=== PATIENT | female | born 1955 | race Caucasian/White ===

== ENCOUNTER → 2016-09-27 | Outpatient (CLI) | payer OTHER ==
[~2016-09-27] VITALS: Ht 154.9 cm; Wt 65.3 kg
[~2016-09-27] MED LIST: LEVO100T5 PO; LIDOCAINE 2% INJ 100 MG/5 ML SDV (FOR ANES.) As Ordered ONE; LINZ290C PO; NEXI40CA PO; NS 1,000 ML IV ONE; OS-CCHW2 PO; PROPOFOL 500 MG/50 ML VIAL As Ordered ONE
--- NOTE | 2016-09-27 09:34 | ROOR ---
Patient Name: Jennifer Hall Procedure Date: 09/27/2016 9:20 AM Date of : 1955 Age: 61 Room: [facility] Gender: Female Note Status: Finalized Procedure: Upper GI endoscopy Indications: dysphonia, eval for possible gastro-esophageal reflux disease. Providers: Keny RODRIGUEZ MD Referring MD: Ines Hatch NP Requesting Provider: Medicines: Monitored Anesthesia Care Complications: No immediate complications. Procedure: Pre-Anesthesia Assessment: - The heart rate, respiratory rate, oxygen saturations, blood pressure, adequacy of pulmonary ventilation, and response to care were monitored throughout the procedure. The Endoscope was introduced through the mouth, and advanced to the second part of duodenum. The upper GI endoscopy was accomplished without difficulty. The patient tolerated the procedure well. Findings: Very small (insignificant) Hiatal Hernia. The esophagus was normal. This was biopsied with a cold forceps for histology. The stomach was normal. The examined duodenum was normal. Impression: - Very small (insignificant) Hiatal Hernia. - Normal esophagus. Biopsied mid esophagus and GE junction. - Normal stomach. - Normal examined duodenum. Recommendation: - Continue present medications. - Observe patient's clinical course. - Telephone endoscopist for pathology results in 2 weeks. Keny Rodriguez MD Keny RODRIGUEZ MD 09/27/2016 9:33:55 AM This report has been signed electronically. Number of Addenda: 0 Note Initiated On: 09/27/2016 9:20 AM Estimated Blood Loss: Estimated blood loss: none.
[2016-09-27 09:50] VITALS: BP 136/79
== END ==
LOC: M OPP 07:18
PROVIDERS: ATTEND Internal Medicine Gastroenterology
DX: K20.9 Esophagitis, unspecified (principal); K44.9 Diaphragmatic hernia without obstruction or gangrene; E03.9 Hypothyroidism, unspecified; K21.9 Gastro-esophageal reflux disease without esophagitis; D64.9 Anemia, unspecified; Z88.8 Allergy status to other drugs, medicaments and biological substances; Z88.1 Allergy status to other antibiotic agents

== ENCOUNTER → 2016-10-10 | Outpatient (CLI) | payer OTHER ==
[~2016-10-10] MED LIST changes: -LIDOCAINE 2% INJ 100 MG/5 ML SDV (FOR ANES.) As Ordered ONE; -NS 1,000 ML IV ONE; -PROPOFOL 500 MG/50 ML VIAL As Ordered ONE
--- NOTE | 2016-10-10 11:03 | REP ---
MRI STUDY OF THE ABDOMEN WITHOUT AND WITH IV GADOLINIUM: HISTORY: Abnormal findings on previous imaging. Comparison CT study June 29, 2015. Comparison sonography February 23, 2016. Comparison hepatobiliary scan February 23, 2016. The ultrasound showed a 7 mm hyperechoic nodule in the right lobe of the liver likely representing hemangioma. 6-month follow-up ultrasound had been recommended. TECHNIQUE: Coronal and axial T1 and T2-weighted scans are obtained before and after gadolinium. Sequences include TrueFISP, spin echo, turbo spin echo, in- and [id number], and dynamically acquired post gadolinium enhanced 2D gradient echo sequences. MR contrast dose: 13 mL of intravenous ProHance is administered. MRI FINDINGS: No focal liver lesion is seen on pre- or post-gadolinium enhanced images. The 7 mm hyperechoic lesion seen by ultrasound is not resolved on our. It cannot be seen in retrospect on CT. No T2 hyperintense lesion is seen. No abnormal gadolinium enhancement is seen in the liver. The spleen is unremarkable. No adrenal or renal lesion is observed. There is no evidence of upper abdominal ascites. The gallbladder is unremarkable. There is no visible pancreatic lesion. IMPRESSION: Sonographic findings are not confirmed, perhaps beyond the resolution of MR. Repeat sonography of the liver recommended. No liver lesion is seen by MRI scanning. Signed by Krzysztof Morrison MD 10/10/2016 02:09 P
== END ==
LOC: M RAD 07:29
PROVIDERS: ATTEND Physician Assistant Medical
DX: R93.3 Abnormal findings on diagnostic imaging of other parts of digestive tract (principal)
CPT/HCPCS: 74183; A9576

== ENCOUNTER → 2017-01-07 | Outpatient (CLI) | payer OTHER ==
--- NOTE | 2017-01-07 15:56 | REP ---
CAROTID ULTRASOUND: Real-time ultrasound evaluation and duplex Doppler interrogation of the extracranial carotid vasculature is performed. There is mild plaquing and narrowing in both carotid bulbs extending into the internal and external carotid arteries. Luminal narrowing is less than 50%. There is no evidence of hemodynamically significant stenosis of either internal carotid artery. Normal flow velocities are seen. The vertebral arteries demonstrate normal direction of flow. RIGHT LEFT Peak systolic velocity ICA 65.6 cm/s 42.3 cm/s End diastolic velocity ICA 20.1 cm/s 16.7 cm/s Peak systolic velocity CCA 63.8 cm/s 73.6 cm/s Peak systolic velocity ECA 67 cm/s 49.2 cm/s ICA/CCA ratio 1.02 0.57 IMPRESSION: Bilateral luminal narrowing of the internal carotid arteries less than 50%. No evidence of hemodynamically significant stenosis. Signed by Peter Post MD 01/07/2017 03:48 P
== END ==
LOC: M RAD 14:54
PROVIDERS: ATTEND Ophthalmology
DX: G44.1 Vascular headache, not elsewhere classified (principal); I65.23 Occlusion and stenosis of bilateral carotid arteries

== ENCOUNTER → 2017-04-05 | Outpatient (CLI) | payer OTHER ==
[~2017-04-05] MED LIST changes: +PROHANCE 279.3MG/ML 15ML VIAL (A9576) As Ordered ONE
[2017-04-05 15:19] LABS: ALBUMIN 3.8 GM/DL (3.2-5.2); ALBUMIN/GLOBULIN RATIO 1.36 (1.00-1.93); ALKALINE PHOSPHATASE 66 U/L (45-117); ALT/SGPT 19 U/L (12-78); AST/SGOT 5 U/L (7-37); BILIRUBIN,DIRECT 0.1 MG/DL (0.0-0.2); BILIRUBIN,TOTAL 0.5 MG/DL (0.2-1.0); TOTAL PROTEIN 6.6 GM/DL (6.4-8.2)
--- NOTE | 2017-04-09 14:13 | REP ---
MRI LIVER WITH AND WITHOUT CONTRAST: TECHNIQUE: Multiple sequences obtained in the axial and coronal planes prior to and following the intravenous administration of 13 mL of gadolinium. Comparison is made with a prior study of 10/10/2016. Correlation is made with prior ultrasounds. An ultrasound from [facility] 03/12/2017 showed a possible nodule in the liver with a maximum diameter of 2.4 cm. On the MRI no nodule is seen in the liver. There is no abnormal signal on the pre-contrast images. No abnormal enhancement is seen. Correlating the ultrasound images to the MRI, the ultrasound finding may represent periportal fat surrounding a branch of a prominent left portal vein. There is no change since the prior MRI exam which also showed no nodule. The liver and spleen are normal in size. The adrenals, pancreas, and kidneys are unremarkable. There is no adenopathy or free fluid. IMPRESSION: No MR evidence for liver nodule as discussed in detail above. Signed by Peter Post MD 04/09/2017 05:05 P
== END ==
LOC: M RAD 14:16
PROVIDERS: ATTEND Physician Assistant Medical
DX: R93.3 Abnormal findings on diagnostic imaging of other parts of digestive tract (principal); R93.2 Abnormal findings on diagnostic imaging of liver and biliary tract
CPT/HCPCS: 36415; 74183; 80076; 82105; 86705; 86709; 86803; 87340; A9576

== ENCOUNTER → 2017-05-30 | Outpatient (CLI) | payer OTHER | LOC: M RAD 08:56 | DX: R93.3 Abnormal findings on diagnostic imaging of other parts of digestive tract (principal) | CPT/HCPCS: 76705 ==

== ENCOUNTER → 2017-10-01 | Outpatient (CLI) | payer OTHER ==
[~2017-10-01] MED LIST changes: +E-Z-GAS II EFFERVESCENT PACKET (SODIUM BICARB./CITRIC ACID/SIMETHICONE) As Ordered; +E-Z-HD 98% w/w 340GM SUSP BTL As Ordered; +E-Z-PAQUE 96% w/w SUSP 176GM BTL As Ordered; -LEVO100T5 PO; -LINZ290C PO; -NEXI40CA PO; -OS-CCHW2 PO; -PROHANCE 279.3MG/ML 15ML VIAL (A9576) As Ordered ONE
== END ==
LOC: M RAD 11:01
DX: R10.84 Generalized abdominal pain (principal); R12 Heartburn

== ENCOUNTER 2018-04-09 14:08 | Emergency (ER) | payer OTHER ==
[2018-04-09] MEDS: SOD POLYSTYRENE SULFONATE SUSP 15 GM/60 ML UD PO (15:34)
[2018-04-09] MEDS: MAGNESIUM CITRATE 300 ML BTL PO (15:34)
== END 2018-04-09 15:35 | disposition home or self-care (01) ==
LOC: M ED 14:08
DX: K59.00 Constipation, unspecified (principal); E03.9 Hypothyroidism, unspecified; Z79.899 Other long term (current) drug therapy; Z88.8 Allergy status to other drugs, medicaments and biological substances
CPT/HCPCS: 74018

== ENCOUNTER 2018-04-10 00:42 | Inpatient (IN) | payer OTHER ==
[2018-04-10] MEDS: MORPHINE 4 MG/ML 1ML VIAL/SYRINGE (J2270) IV ×3 (01:26→07:34)
[2018-04-10 01:28] LABS: BASO # 0.1 10^3/uL (0.0-0.2); BASO % 0.5 % (0.0-1.0); EOS # 0.1 10^3/uL (0.0-0.50); EOS % 0.5 % (0.0-3.0); HEMATOCRIT 35.6 % (36.0-47.0); HEMOGLOBIN 11.1 g/dl (12.0-15.5); IMMATURE GRANULOCYTE % 0.2 % (0-3.0); LYMPH # 2.3 10^3/uL (1.5-4.5); LYMPH % 24.8 % (24.0-44.0); MEAN CORPUSCULAR HGB CONC 31.2 g/dl (32.0-36.5); MEAN CORPUSCULAR VOLUME 64.1 fl (80.0-96.0); MONO # 0.9 10^3/uL (0.0-0.8); MONO % 9.1 % (0.0-5.0); NEUTROPHILS # 6.1 10^3/uL (1.8-7.7); NEUTROPHILS % 64.9 % (36.0-66.0); PLATELET COUNT, AUTOMATED 335 10^3/uL (150-450); RED BLOOD COUNT 5.55 10^6/uL (4.00-5.40); RED CELL DISTRIBUTION WIDTH 15.5 % (11.5-14.5); WHITE BLOOD COUNT 9.4 10^3/uL (4.0-10.0)
[2018-04-10 01:47] LABS: KETONE, URINE AUTO RFX 1+ mg/dL (NEGATIVE); LEUKOCYTE ESTERASE UR AUTO RFX NEGATIVE (NEGATIVE); NITRITE, URINE AUTO RFX NEGATIVE (NEGATIVE); RBC, URINE AUTO RFX 2 /HPF (0-3); SPECIFIC GRAVITY UR AUTO RFX 1.016 (1.002-1.035); SQUAM EPITHELIAL CELL UR AURFX 0 /HPF (0-6); WBC, URINE AUTO RFX 1 /HPF (0-3)
[2018-04-10 01:58] LABS: ALBUMIN 3.8 GM/DL (3.2-5.2); ALBUMIN/GLOBULIN RATIO 1.19 (1.00-1.93); ALKALINE PHOSPHATASE 74 U/L (45-117); ALT/SGPT 25 U/L (12-78); ANION GAP 10 MEQ/L (8-16); AST/SGOT 14 U/L (7-37); BILIRUBIN,DIRECT 0.1 MG/DL (0.0-0.2); BILIRUBIN,TOTAL 0.5 MG/DL (0.2-1.0); BLOOD UREA NITROGEN 9 MG/DL (7-18); CALCIUM LEVEL 8.6 MG/DL (8.8-10.2); CARBON DIOXIDE LEVEL 27 MEQ/L (21-32); CHLORIDE LEVEL 104 MEQ/L (98-107); CREATININE FOR GFR 0.91 MG/DL (0.55-1.30); GLOMERULAR FILTRATION RATE > 60.0 (>45); GLUCOSE, FASTING 90 MG/DL (70-100); LIPASE 191 U/L (73-393); POTASSIUM SERUM 3.4 MEQ/L (3.5-5.1); SODIUM LEVEL 141 MEQ/L (136-145)
[2018-04-10] MEDS ORDERED: ISOVUE-370 76% 100ML VIAL (Q9967) As Ordered (02:21)
[2018-04-10] MEDS: POTASSIUM CHLORIDE 10 MEQ SR TABLET PO (03:23)
[2018-04-10] MEDS: NS 1,000 ML IV (04:58)
[2018-04-10] MEDS ORDERED: PROMETHAZINE INJ 25 MG/ML VIAL (J2550) IV (07:00)
[2018-04-10] MEDS ORDERED: MORPHINE 4 MG/ML 1ML VIAL/SYRINGE (J2270) IV ×2 (07:00→13:00)
[2018-04-10] MEDS: ONDANSETRON 4MG/2ML VIAL (J2405) IV ×2 (07:12→13:36)
[2018-04-10] MEDS: KCL 40MEQ in NS 1000ML 1,000 ML IV ×3 (07:34→21:16)
[2018-04-10] MEDS: LEVOTHYROXINE 100MCG TABLET (0.1MG) PO ×2 (07:48→20:04)
[2018-04-10] MEDS: PANTOPRAZOLE 40MG INJ (PROTONIX) (C9113) IV (12:06)
[2018-04-10] MEDS: LOSARTAN 25 MG TAB PO (12:07)
[2018-04-10] MEDS: SIMETHICONE 80 MG CHEW TAB PO ×2 (12:07→12:52)
[2018-04-10] MEDS: METOCLOPRAMIDE INJ 10MG/2ML VIAL (J2765) IV (17:37)
[2018-04-10] MEDS: ACETAMINOPHEN TAB 650MG DOSE (2X325MG) PO (17:43)
[2018-04-10] MEDS: LACTULOSE 20 GM/30 ML SYRUP UD PO (20:03)
[2018-04-11] MEDS: PANTOPRAZOLE 40MG INJ (PROTONIX) (C9113) IV (08:22)
[2018-04-11] MEDS: LACTULOSE 20 GM/30 ML SYRUP UD PO ×2 (08:22→21:57)
[2018-04-11] MEDS: LOSARTAN 25 MG TAB PO (08:23)
[2018-04-11] MEDS: ACETAMINOPHEN TAB 650MG DOSE (2X325MG) PO ×2 (10:02→19:29)
[2018-04-11] MEDS: MIRALAX *UNIT DOSE* 17GM PACKET PO ×4 (12:54→21:57)
[2018-04-11] MEDS: KETOROLAC 30 MG/ML VIAL (J1885) IV (12:55)
[2018-04-11] MEDS: KCL 40MEQ in NS 1000ML 1,000 ML IV (12:56)
[2018-04-11] MEDS: LEVOTHYROXINE 100MCG TABLET (0.1MG) PO (21:57)
[2018-04-12] MEDS: KCL 40MEQ in NS 1000ML 1,000 ML IV ×3 (02:00→17:36)
[2018-04-12] MEDS: ACETAMINOPHEN TAB 650MG DOSE (2X325MG) PO ×2 (05:53→10:24)
[2018-04-12] MEDS: PANTOPRAZOLE 40MG INJ (PROTONIX) (C9113) IV (09:50)
[2018-04-12] MEDS: LACTULOSE 20 GM/30 ML SYRUP UD PO ×2 (09:51→21:46)
[2018-04-12] MEDS: LOSARTAN 25 MG TAB PO (09:52)
[2018-04-12] MEDS: METOCLOPRAMIDE INJ 10MG/2ML VIAL (J2765) IV (10:23)
[2018-04-12] MEDS: POTASSIUM CHLORIDE 10 MEQ SR TABLET PO ×2 (17:35→21:47)
[2018-04-12] MEDS: GOLYTELY SOLN 4000 ML BTL PO (17:36)
[2018-04-12] MEDS: BISACODYL 5 MG TAB PO ×2 (17:36→21:46)
[2018-04-12] MEDS: ONDANSETRON 4MG/2ML VIAL (J2405) IV (19:05)
[2018-04-12] MEDS: LEVOTHYROXINE 100MCG TABLET (0.1MG) PO (21:46)
[2018-04-13] MEDS: KCL 40MEQ in NS 1000ML 1,000 ML IV ×2 (04:31→17:14)
[2018-04-13 07:38] LABS: BASO # 0.1 10^3/uL (0.0-0.2); BASO % 0.9 % (0.0-1.0); EOS # 0.1 10^3/uL (0.0-0.50); EOS % 1.9 % (0.0-3.0); HEMATOCRIT 32.1 % (36.0-47.0); HEMOGLOBIN 9.9 g/dl (12.0-15.5); IMMATURE GRANULOCYTE % 0.4 % (0-3.0); LYMPH % 28.8 % (24.0-44.0); MEAN CORPUSCULAR HEMOGLOBIN 20.2 pg (27.0-33.0); MEAN CORPUSCULAR HGB CONC 30.8 g/dl (32.0-36.5); MEAN CORPUSCULAR VOLUME 65.4 fl (80.0-96.0); MONO # 0.7 10^3/uL (0.0-0.8); MONO % 10.1 % (0.0-5.0); NEUTROPHILS % 57.9 % (36.0-66.0); PLATELET COUNT, AUTOMATED 306 10^3/uL (150-450); RED BLOOD COUNT 4.91 10^6/uL (4.00-5.40); RED CELL DISTRIBUTION WIDTH 15.9 % (11.5-14.5); WHITE BLOOD COUNT 6.9 10^3/uL (4.0-10.0)
[2018-04-13 08:08] LABS: ALBUMIN 3.4 GM/DL (3.2-5.2); ALBUMIN/GLOBULIN RATIO 1.26 (1.00-1.93); ALKALINE PHOSPHATASE 61 U/L (45-117); ALT/SGPT 20 U/L (12-78); ANION GAP 7 MEQ/L (8-16); AST/SGOT 7 U/L (7-37); BILIRUBIN,TOTAL 0.5 MG/DL (0.2-1.0); BLOOD UREA NITROGEN 4 MG/DL (7-18); CALCIUM LEVEL 8.4 MG/DL (8.8-10.2); CARBON DIOXIDE LEVEL 27 MEQ/L (21-32); CHLORIDE LEVEL 109 MEQ/L (98-107); CREATININE FOR GFR 0.84 MG/DL (0.55-1.30); GLOMERULAR FILTRATION RATE > 60.0 (>45); GLUCOSE, FASTING 90 MG/DL (70-100); POTASSIUM SERUM 3.9 MEQ/L (3.5-5.1); SODIUM LEVEL 143 MEQ/L (136-145); TOTAL PROTEIN 6.1 GM/DL (6.4-8.2)
[2018-04-13] MEDS: PANTOPRAZOLE 40MG INJ (PROTONIX) (C9113) IV (09:43)
[2018-04-13] MEDS: LACTULOSE 20 GM/30 ML SYRUP UD PO ×2 (09:45→20:58)
[2018-04-13] MEDS: LOSARTAN 25 MG TAB PO (09:45)
[2018-04-13] MEDS: MIRALAX *UNIT DOSE* 17GM PACKET PO ×3 (16:27→18:59)
[2018-04-13] MEDS: ACETAMINOPHEN TAB 650MG DOSE (2X325MG) PO (16:29)
[2018-04-13] MEDS: BISACODYL 5 MG TAB PO ×3 (16:29→20:59)
[2018-04-13] MEDS: LEVOTHYROXINE 100MCG TABLET (0.1MG) PO (20:59)
[2018-04-14 07:26] LABS: ANION GAP 6 MEQ/L (8-16); BLOOD UREA NITROGEN 3 MG/DL (7-18); CALCIUM LEVEL 8.4 MG/DL (8.8-10.2); CARBON DIOXIDE LEVEL 28 MEQ/L (21-32); CHLORIDE LEVEL 110 MEQ/L (98-107); CREATININE FOR GFR 0.79 MG/DL (0.55-1.30); GLOMERULAR FILTRATION RATE > 60.0 (>45); GLUCOSE, FASTING 90 MG/DL (70-100); POTASSIUM SERUM 4.1 MEQ/L (3.5-5.1); SODIUM LEVEL 144 MEQ/L (136-145)
[2018-04-14] MEDS: PANTOPRAZOLE 40MG INJ (PROTONIX) (C9113) IV (07:53)
[2018-04-14] MEDS: LOSARTAN 25 MG TAB PO (07:54)
[2018-04-14] MEDS: LACTULOSE 20 GM/30 ML SYRUP UD PO ×2 (07:54→21:47)
[2018-04-14] MEDS: DOCUSATE SODIUM 100 MG CAP PO ×2 (10:30→21:46)
[2018-04-14] MEDS: SENNA 8.6 MG TAB (SENOKOT) PO ×2 (10:30→21:46)
[2018-04-14] MEDS: KCL 40MEQ in NS 1000ML 1,000 ML IV ×2 (11:09→21:47)
[2018-04-14] MEDS: GOLYTELY SOLN 4000 ML BTL PO (12:07)
[2018-04-14] MEDS: LINZESS 290 MCG PO (17:30)
[2018-04-14] MEDS: LEVOTHYROXINE 100MCG TABLET (0.1MG) PO (21:47)
[2018-04-15] MEDS ORDERED: LIQUID POLIBAR PLUS 105% w/v 1900ML BTL As Ordered (08:34)
[2018-04-15] MEDS: PANTOPRAZOLE 40MG INJ (PROTONIX) (C9113) IV (10:18)
[2018-04-15] MEDS: DOCUSATE SODIUM 100 MG CAP PO ×2 (10:18→21:51)
[2018-04-15] MEDS: SENNA 8.6 MG TAB (SENOKOT) PO ×2 (10:18→21:50)
[2018-04-15] MEDS: LINZESS 290 MCG PO ×2 (10:19→17:42)
[2018-04-15] MEDS: LACTULOSE 20 GM/30 ML SYRUP UD PO ×2 (10:19→21:50)
[2018-04-15] MEDS: LOSARTAN 25 MG TAB PO (10:19)
[2018-04-15] MEDS: KCL 40MEQ in NS 1000ML 1,000 ML IV ×2 (10:37→23:48)
[2018-04-15] MEDS: LEVOTHYROXINE 100MCG TABLET (0.1MG) PO (21:51)
[2018-04-16] MEDS: LINZESS 290 MCG PO ×2 (07:52→17:47)
[2018-04-16] MEDS: LACTULOSE 20 GM/30 ML SYRUP UD PO ×2 (09:31→22:04)
[2018-04-16] MEDS: PANTOPRAZOLE 40MG INJ (PROTONIX) (C9113) IV (09:31)
[2018-04-16] MEDS: SENNA 8.6 MG TAB (SENOKOT) PO ×2 (09:31→22:04)
[2018-04-16] MEDS: DOCUSATE SODIUM 100 MG CAP PO ×2 (09:32→22:05)
[2018-04-16] MEDS: LOSARTAN 25 MG TAB PO (09:32)
[2018-04-16] MEDS: LEVOTHYROXINE 100MCG TABLET (0.1MG) PO (22:05)
[2018-04-17] MEDS: LINZESS 290 MCG PO ×2 (07:52→17:25)
[2018-04-17] MEDS: LACTULOSE 20 GM/30 ML SYRUP UD PO (09:50)
[2018-04-17] MEDS: SENNA 8.6 MG TAB (SENOKOT) PO ×2 (09:50→21:37)
[2018-04-17] MEDS: DOCUSATE SODIUM 100 MG CAP PO ×2 (09:50→21:36)
[2018-04-17] MEDS: PANTOPRAZOLE 40MG INJ (PROTONIX) (C9113) IV (09:50)
[2018-04-17] MEDS: LOSARTAN 25 MG TAB PO (09:50)
[2018-04-17] MEDS: MIRALAX *UNIT DOSE* 17GM PACKET PO ×3 (13:25→21:36)
[2018-04-17] MEDS: LEVOTHYROXINE 100MCG TABLET (0.1MG) PO (21:37)
[2018-04-18] MEDS: LINZESS 290 MCG PO (07:49)
[2018-04-18] MEDS: ACETAMINOPHEN TAB 650MG DOSE (2X325MG) PO (07:51)
[2018-04-18] MEDS: SENNA 8.6 MG TAB (SENOKOT) PO ×2 (09:18→19:57)
[2018-04-18] MEDS: PANTOPRAZOLE 40MG INJ (PROTONIX) (C9113) IV (09:18)
[2018-04-18] MEDS: DOCUSATE SODIUM 100 MG CAP PO ×2 (09:18→19:57)
[2018-04-18] MEDS: MIRALAX *UNIT DOSE* 17GM PACKET PO (09:18)
[2018-04-18] MEDS: LOSARTAN 25 MG TAB PO (09:19)
[2018-04-18] MEDS: GOLYTELY SOLN 4000 ML BTL PO (12:15)
[2018-04-18] MEDS: SLF 3 ML SYR IV ×2 (18:27→19:58)
[2018-04-18] MEDS: MOM 30ML SUSPENSION UDC PO (19:57)
[2018-04-18] MEDS: LEVOTHYROXINE 100MCG TABLET (0.1MG) PO (19:58)
[2018-04-19] MEDS: SLF 3 ML SYR IV ×3 (06:27→20:22)
[2018-04-19] MEDS: MOM 30ML SUSPENSION UDC PO ×2 (09:39→20:22)
[2018-04-19] MEDS: PANTOPRAZOLE 40MG INJ (PROTONIX) (C9113) IV (09:39)
[2018-04-19] MEDS: LOSARTAN 25 MG TAB PO (09:40)
[2018-04-19] MEDS: SENNA 8.6 MG TAB (SENOKOT) PO ×2 (09:40→20:21)
[2018-04-19] MEDS: DOCUSATE SODIUM 100 MG CAP PO ×2 (09:40→20:20)
[2018-04-19] MEDS: GOLYTELY SOLN 4000 ML BTL PO (11:29)
[2018-04-19] MEDS: LEVOTHYROXINE 100MCG TABLET (0.1MG) PO (20:21)
[2018-04-20] MEDS: SLF 3 ML SYR IV ×3 (06:51→22:04)
[2018-04-20 07:09] LABS: ANION GAP 4 MEQ/L (8-16); BLOOD UREA NITROGEN 6 MG/DL (7-18); CALCIUM LEVEL 8.8 MG/DL (8.8-10.2); CARBON DIOXIDE LEVEL 31 MEQ/L (21-32); CHLORIDE LEVEL 107 MEQ/L (98-107); GLOMERULAR FILTRATION RATE > 60.0 (>45); GLUCOSE, FASTING 95 MG/DL (70-100); POTASSIUM SERUM 3.7 MEQ/L (3.5-5.1); SODIUM LEVEL 142 MEQ/L (136-145)
[2018-04-20 07:16] LABS: HEMATOCRIT 33.6 % (36.0-47.0); HEMOGLOBIN 10.4 g/dl (12.0-15.5); MEAN CORPUSCULAR VOLUME 64.5 fl (80.0-96.0); PLATELET COUNT, AUTOMATED 331 10^3/uL (150-450); RED BLOOD COUNT 5.21 10^6/uL (4.00-5.40); RED CELL DISTRIBUTION WIDTH 15.5 % (11.5-14.5); WHITE BLOOD COUNT 6.8 10^3/uL (4.0-10.0)
[2018-04-20] MEDS: PANTOPRAZOLE 40MG INJ (PROTONIX) (C9113) IV (09:12)
[2018-04-20] MEDS: DOCUSATE SODIUM 100 MG CAP PO ×2 (09:13→22:05)
[2018-04-20] MEDS: LOSARTAN 25 MG TAB PO (09:13)
[2018-04-20] MEDS: SENNA 8.6 MG TAB (SENOKOT) PO ×2 (09:13→22:06)
[2018-04-20] MEDS: MOM 30ML SUSPENSION UDC PO ×2 (09:13→22:05)
[2018-04-20] MEDS: GOLYTELY SOLN 4000 ML BTL PO (10:47)
[2018-04-20] MEDS: LEVOTHYROXINE 100MCG TABLET (0.1MG) PO (22:05)
[2018-04-21] MEDS: SLF 3 ML SYR IV (06:00)
[2018-04-21 06:34] LABS: HEMOGLOBIN 10.4 g/dl (12.0-15.5); MEAN CORPUSCULAR HEMOGLOBIN 20.4 pg (27.0-33.0); MEAN CORPUSCULAR HGB CONC 31.5 g/dl (32.0-36.5); MEAN CORPUSCULAR VOLUME 64.8 fl (80.0-96.0); PLATELET COUNT, AUTOMATED 304 10^3/uL (150-450); RED BLOOD COUNT 5.09 10^6/uL (4.00-5.40); RED CELL DISTRIBUTION WIDTH 15.3 % (11.5-14.5); WHITE BLOOD COUNT 6.2 10^3/uL (4.0-10.0)
[2018-04-21 06:54] LABS: ANION GAP 4 MEQ/L (8-16); BLOOD UREA NITROGEN 7 MG/DL (7-18); CALCIUM LEVEL 8.6 MG/DL (8.8-10.2); CARBON DIOXIDE LEVEL 31 MEQ/L (21-32); CHLORIDE LEVEL 109 MEQ/L (98-107); CREATININE FOR GFR 0.78 MG/DL (0.55-1.30); GLOMERULAR FILTRATION RATE > 60.0 (>45); GLUCOSE, FASTING 92 MG/DL (70-100); POTASSIUM SERUM 3.5 MEQ/L (3.5-5.1); SODIUM LEVEL 144 MEQ/L (136-145)
[2018-04-21] MEDS: PANTOPRAZOLE 40MG INJ (PROTONIX) (C9113) IV (08:18)
[2018-04-21] MEDS: LOSARTAN 25 MG TAB PO (08:19)
[2018-04-21] MEDS: GOLYTELY SOLN 4000 ML BTL PO (09:00)
[2018-04-21] MEDS: SENNA 8.6 MG TAB (SENOKOT) PO (09:00)
[2018-04-21] MEDS: DOCUSATE SODIUM 100 MG CAP PO (09:00)
[2018-04-21] MEDS: MOM 30ML SUSPENSION UDC PO (09:00)
[2018-04-21] MEDS ORDERED: ROCURONIUM BROMIDE 50 MG/5 ML VIAL As Ordered (10:02)
[2018-04-21] MEDS ORDERED: dexameTHASONE 4 MG/ML 1ML VIAL (J1100) As Ordered ×2 (10:02→13:07)
[2018-04-21] MEDS ORDERED: ONDANSETRON 4MG/2ML VIAL (J2405) As Ordered ×2 (10:02→14:11)
[2018-04-21] MEDS ORDERED: PROPOFOL 200 MG/20 ML VIAL As Ordered (10:02)
[2018-04-21] MEDS ORDERED: LIDOCAINE 2% INJ 100 MG/5 ML SDV (FOR ANES.) As Ordered (10:02)
[2018-04-21] MEDS ORDERED: fentaNYL 250 MCG/5 ML INJECTION (J3010) As Ordered (10:03)
[2018-04-21] MEDS ORDERED: MIDAZOLAM INJ 2 MG/2 ML VIAL (J2250) As Ordered (10:03)
[2018-04-21] MEDS ORDERED: ERTAPENEM 1 GM INJ (INVanz) (J1335) As Ordered (12:03)
[2018-04-21] MEDS: ERTAPENEM SODIUM 1 GM in NS 50 ML IV (12:32)
[2018-04-21] MEDS ORDERED: SUGAMMADEX SODIUM 500 MG/5 ML VIAL (BRIDION) As Ordered (13:10)
[2018-04-21] MEDS: BUPIVACAINE HCL 0.25% 30 ML VIAL As Ordered (13:33)
[2018-04-21] MEDS: BUPIVACAINE LIPOSOME/PF 1.3% 20ML VIAL (13.3MG/ML)(EXPAREL)(C9290 PER1MG) As Ordered (13:33)
[2018-04-21] MEDS ORDERED: MORPHINE 1MG/ML IN 0.9% NACL 100ML IV BAG As Ordered (13:37)
[2018-04-21] MEDS ORDERED: NS 1,000 ML IV (13:39)
[2018-04-21] MEDS ORDERED: IPRATROPIUM 0.5MG/ALBUTEROL 2.5MG INH SOL UD 3ML (DUONEB)(J7620) NEB (13:45)
[2018-04-21] MEDS ORDERED: METOCLOPRAMIDE INJ 10MG/2ML VIAL (J2765) IV (13:45)
[2018-04-21] MEDS ORDERED: ONDANSETRON 4MG/2ML VIAL (J2405) IV (13:45)
[2018-04-21] MEDS ORDERED: PROMETHAZINE INJ 25 MG/ML VIAL (J2550) IV (13:45)
[2018-04-21] MEDS ORDERED: diphenhydrAMINE INJ 50MG/ML VIAL (J1200) IV (13:45)
[2018-04-21] MEDS ORDERED: EPIDURAL/PCA KEYS XX (13:45)
[2018-04-21] MEDS ORDERED: NALOXONE INJ 0.4 MG/1 ML VIAL (J2310) IV (13:45)
[2018-04-21] MEDS: GLUCAGON FOR INJ 1 MG VIAL (J1610) As Ordered (13:53)
[2018-04-21] MEDS: LR 1,000 ML IV (14:00)
[2018-04-21] MEDS ORDERED: fentaNYL 100 MCG/2 ML INJECTION (J3010) IV (14:00)
[2018-04-21] MEDS ORDERED: PERCOCET 5MG/325MG TAB PO (14:00)
[2018-04-21] MEDS ORDERED: MEPERIDINE INJ 25 MG/ML VIAL (J2175) IV (14:00)
[2018-04-21] MEDS ORDERED: METOCLOPRAMIDE INJ 10MG/2ML VIAL (J2765) As Ordered (14:11)
[2018-04-21] MEDS: METOCLOPRAMIDE INJ 10MG/2ML VIAL (J2765) IV (14:12)
[2018-04-21] MEDS: ONDANSETRON 4MG/2ML VIAL (J2405) IV (14:12)
[2018-04-21] MEDS ORDERED: KETOROLAC 30 MG/ML VIAL (J1885) As Ordered (14:22)
[2018-04-21] MEDS: KETOROLAC 30 MG/ML VIAL (J1885) IV ×2 (14:25→20:21)
[2018-04-21] MEDS: MORPHINE 1MG/ML IN 0.9% NACL 100ML IV BAG IV (14:38)
[2018-04-21] MEDS: D5W/LR 1,000 ML IV ×2 (15:30→22:23)
[2018-04-21] MEDS: ALVIMOPAN 12 MG CAPSULE (ENTEREG) PO (20:21)
[2018-04-22] MEDS: KETOROLAC 30 MG/ML VIAL (J1885) IV ×4 (03:39→21:27)
[2018-04-22] MEDS: D5W/LR 1,000 ML IV ×3 (06:00→21:26)
[2018-04-22 07:06] LABS: HEMATOCRIT 29.9 % (36.0-47.0); HEMOGLOBIN 9.4 g/dl (12.0-15.5); MEAN CORPUSCULAR HEMOGLOBIN 20.3 pg (27.0-33.0); MEAN CORPUSCULAR HGB CONC 31.4 g/dl (32.0-36.5); MEAN CORPUSCULAR VOLUME 64.4 fl (80.0-96.0); PLATELET COUNT, AUTOMATED 255 10^3/uL (150-450); RED BLOOD COUNT 4.64 10^6/uL (4.00-5.40); RED CELL DISTRIBUTION WIDTH 15.1 % (11.5-14.5); WHITE BLOOD COUNT 13.3 10^3/uL (4.0-10.0)
[2018-04-22 07:35] LABS: ANION GAP 5 MEQ/L (8-16); BLOOD UREA NITROGEN 7 MG/DL (7-18); CALCIUM LEVEL 8.3 MG/DL (8.8-10.2); CARBON DIOXIDE LEVEL 30 MEQ/L (21-32); CHLORIDE LEVEL 106 MEQ/L (98-107); CREATININE FOR GFR 0.67 MG/DL (0.55-1.30); GLOMERULAR FILTRATION RATE > 60.0 (>45); GLUCOSE, FASTING 132 MG/DL (70-100); POTASSIUM SERUM 3.7 MEQ/L (3.5-5.1); SODIUM LEVEL 141 MEQ/L (136-145)
[2018-04-22] MEDS: PANTOPRAZOLE 40MG INJ (PROTONIX) (C9113) IV (09:27)
[2018-04-22] MEDS: ALVIMOPAN 12 MG CAPSULE (ENTEREG) PO ×2 (09:27→21:27)
[2018-04-22] MEDS: MORPHINE 4 MG/ML 1ML VIAL/SYRINGE (J2270) IV ×2 (13:47→17:12)
[2018-04-22] MEDS: ERTAPENEM SODIUM 1 GM in NS MINI-BAG PLUS 50 ML IV (13:48)
[2018-04-23] MEDS: KETOROLAC 30 MG/ML VIAL (J1885) IV ×4 (04:00→22:11)
[2018-04-23 07:18] LABS: HEMATOCRIT 30.2 % (36.0-47.0); HEMOGLOBIN 9.5 g/dl (12.0-15.5); MEAN CORPUSCULAR HEMOGLOBIN 20.4 pg (27.0-33.0); MEAN CORPUSCULAR HGB CONC 31.5 g/dl (32.0-36.5); MEAN CORPUSCULAR VOLUME 64.8 fl (80.0-96.0); PLATELET COUNT, AUTOMATED 250 10^3/uL (150-450); RED BLOOD COUNT 4.66 10^6/uL (4.00-5.40); RED CELL DISTRIBUTION WIDTH 15.4 % (11.5-14.5); WHITE BLOOD COUNT 8.7 10^3/uL (4.0-10.0)
[2018-04-23 07:36] LABS: ANION GAP 7 MEQ/L (8-16); BLOOD UREA NITROGEN 6 MG/DL (7-18); CARBON DIOXIDE LEVEL 30 MEQ/L (21-32); CHLORIDE LEVEL 108 MEQ/L (98-107); CREATININE FOR GFR 0.61 MG/DL (0.55-1.30); GLOMERULAR FILTRATION RATE > 60.0 (>45); GLUCOSE, FASTING 97 MG/DL (70-100); POTASSIUM SERUM 3.5 MEQ/L (3.5-5.1); SODIUM LEVEL 145 MEQ/L (136-145)
[2018-04-23] MEDS: PANTOPRAZOLE 40MG INJ (PROTONIX) (C9113) IV (08:55)
[2018-04-23] MEDS: ALVIMOPAN 12 MG CAPSULE (ENTEREG) PO ×2 (08:56→22:11)
[2018-04-23] MEDS: SENNA 8.6 MG TAB (SENOKOT) PO ×2 (11:39→22:12)
[2018-04-23] MEDS: DOCUSATE SODIUM 100 MG CAP PO ×2 (11:39→22:11)
[2018-04-24] MEDS: KETOROLAC 30 MG/ML VIAL (J1885) IV ×4 (04:01→21:54)
[2018-04-24 06:59] LABS: HEMATOCRIT 31.9 % (36.0-47.0); MEAN CORPUSCULAR HEMOGLOBIN 20.1 pg (27.0-33.0); MEAN CORPUSCULAR HGB CONC 31.3 g/dl (32.0-36.5); MEAN CORPUSCULAR VOLUME 64.2 fl (80.0-96.0); PLATELET COUNT, AUTOMATED 266 10^3/uL (150-450); RED BLOOD COUNT 4.97 10^6/uL (4.00-5.40); RED CELL DISTRIBUTION WIDTH 15.1 % (11.5-14.5); WHITE BLOOD COUNT 6.8 10^3/uL (4.0-10.0)
[2018-04-24 07:23] LABS: ANION GAP 8 MEQ/L (8-16); BLOOD UREA NITROGEN 7 MG/DL (7-18); CALCIUM LEVEL 8.9 MG/DL (8.8-10.2); CARBON DIOXIDE LEVEL 29 MEQ/L (21-32); CHLORIDE LEVEL 107 MEQ/L (98-107); CREATININE FOR GFR 0.61 MG/DL (0.55-1.30); GLOMERULAR FILTRATION RATE > 60.0 (>45); GLUCOSE, FASTING 92 MG/DL (70-100); POTASSIUM SERUM 3.4 MEQ/L (3.5-5.1); SODIUM LEVEL 144 MEQ/L (136-145)
[2018-04-24] MEDS: SENNA 8.6 MG TAB (SENOKOT) PO ×2 (08:34→21:52)
[2018-04-24] MEDS: PANTOPRAZOLE 40MG INJ (PROTONIX) (C9113) IV (08:34)
[2018-04-24] MEDS: DOCUSATE SODIUM 100 MG CAP PO ×2 (08:35→21:52)
[2018-04-24] MEDS: ALVIMOPAN 12 MG CAPSULE (ENTEREG) PO ×2 (08:35→21:52)
[2018-04-25] MEDS: KETOROLAC 30 MG/ML VIAL (J1885) IV ×4 (03:36→21:39)
[2018-04-25 07:11] LABS: HEMATOCRIT 31.2 % (36.0-47.0); MEAN CORPUSCULAR HEMOGLOBIN 20.1 pg (27.0-33.0); MEAN CORPUSCULAR HGB CONC 32.1 g/dl (32.0-36.5); MEAN CORPUSCULAR VOLUME 62.8 fl (80.0-96.0); PLATELET COUNT, AUTOMATED 293 10^3/uL (150-450); RED BLOOD COUNT 4.97 10^6/uL (4.00-5.40); WHITE BLOOD COUNT 5.8 10^3/uL (4.0-10.0)
[2018-04-25 07:39] LABS: ANION GAP 7 MEQ/L (8-16); BLOOD UREA NITROGEN 7 MG/DL (7-18); CALCIUM LEVEL 8.3 MG/DL (8.8-10.2); CARBON DIOXIDE LEVEL 30 MEQ/L (21-32); CHLORIDE LEVEL 106 MEQ/L (98-107); CREATININE FOR GFR 0.71 MG/DL (0.55-1.30); GLOMERULAR FILTRATION RATE > 60.0 (>45); GLUCOSE, FASTING 85 MG/DL (70-100); POTASSIUM SERUM 3.3 MEQ/L (3.5-5.1); SODIUM LEVEL 143 MEQ/L (136-145)
[2018-04-25] MEDS: ALVIMOPAN 12 MG CAPSULE (ENTEREG) PO ×2 (08:37→21:40)
[2018-04-25] MEDS: PANTOPRAZOLE 40MG INJ (PROTONIX) (C9113) IV (08:37)
[2018-04-25] MEDS: SENNA 8.6 MG TAB (SENOKOT) PO ×2 (08:37→21:40)
[2018-04-25] MEDS: DOCUSATE SODIUM 100 MG CAP PO ×2 (08:37→21:40)
[2018-04-26] MEDS: KETOROLAC 30 MG/ML VIAL (J1885) IV ×2 (03:29→10:14)
[2018-04-26 06:57] LABS: HEMATOCRIT 30.7 % (36.0-47.0); HEMOGLOBIN 9.9 g/dl (12.0-15.5); MEAN CORPUSCULAR HEMOGLOBIN 20.4 pg (27.0-33.0); MEAN CORPUSCULAR HGB CONC 32.2 g/dl (32.0-36.5); MEAN CORPUSCULAR VOLUME 63.2 fl (80.0-96.0); PLATELET COUNT, AUTOMATED 318 10^3/uL (150-450); RED BLOOD COUNT 4.86 10^6/uL (4.00-5.40); RED CELL DISTRIBUTION WIDTH 14.8 % (11.5-14.5); WHITE BLOOD COUNT 6.1 10^3/uL (4.0-10.0)
[2018-04-26 07:23] LABS: ANION GAP 10 MEQ/L (8-16); BLOOD UREA NITROGEN 11 MG/DL (7-18); CALCIUM LEVEL 8.3 MG/DL (8.8-10.2); CARBON DIOXIDE LEVEL 27 MEQ/L (21-32); CHLORIDE LEVEL 110 MEQ/L (98-107); CREATININE FOR GFR 0.82 MG/DL (0.55-1.30); GLOMERULAR FILTRATION RATE > 60.0 (>45); GLUCOSE, FASTING 100 MG/DL (70-100); POTASSIUM SERUM 3.6 MEQ/L (3.5-5.1); SODIUM LEVEL 147 MEQ/L (136-145)
[2018-04-26] MEDS: ALVIMOPAN 12 MG CAPSULE (ENTEREG) PO (10:14)
[2018-04-26] MEDS: SENNA 8.6 MG TAB (SENOKOT) PO (10:14)
[2018-04-26] MEDS: PANTOPRAZOLE 40MG INJ (PROTONIX) (C9113) IV (10:14)
[2018-04-26] MEDS: DOCUSATE SODIUM 100 MG CAP PO (10:15)
== END 2018-04-26 11:33 | disposition home or self-care (01) | DRG 331 ==
LOC: M ED 00:42 → M ED INP 06:48 → M PED 09:22
PROC: 0DBN0ZZ Excision of Sigmoid Colon, Open Approach (ICD-10-PCS; principal; 2018-04-21 12:00)
DX: K56.2 Volvulus (principal); K59.09 Other constipation; K21.9 Gastro-esophageal reflux disease without esophagitis; E03.9 Hypothyroidism, unspecified; Z79.899 Other long term (current) drug therapy; Z88.1 Allergy status to other antibiotic agents

== ENCOUNTER → 2018-08-06 | Outpatient (CLI) | payer OTHER ==
[~2018-08-06] MED LIST changes: +COLA100C5 PO; +DOCU100C16 PO; -E-Z-GAS II EFFERVESCENT PACKET (SODIUM BICARB./CITRIC ACID/SIMETHICONE) As Ordered; -E-Z-HD 98% w/w 340GM SUSP BTL As Ordered; -E-Z-PAQUE 96% w/w SUSP 176GM BTL As Ordered; +LEVO100T5 PO; +LINZ290C PO; +LOSA25TA14 PO; +NEXI40CA PO; +OMEP10CASR PO; +OS-CCHW2 PO
--- NOTE | 2018-08-07 06:43 | REP ---
Clinical: Hemangioma. Technique: Real time laboy scale ultrasound examination using curved array transducer. Findings: Liver again demonstrates 6 mm stable benign hemangioma in the right lobe. Visualized pancreas is unremarkable but limited due to interposed bowel gas. Gallbladder is normal and without gallstones, wall thickening, or pericholecystic fluid. No biliary ductal dilatation is appreciated and the common bile duct measures 3.0 mm diameter. The right kidney is normal in reniform shape without hydronephrosis and measures 9.8 x 4.6 x 3.4 cm. No ascites. [place]: Stable subcentimeter benign hepatic hemangioma. Electronically Signed by Yash Ovalle MD 08/07/2018 06:35 A
== END ==
LOC: M RAD 09:28
PROVIDERS: ATTEND Physician Assistant Medical
DX: D18.03 Hemangioma of intra-abdominal structures (principal)

== ENCOUNTER → 2018-11-27 | Outpatient (CLI) | payer OTHER ==
--- NOTE | 2018-11-28 01:04 | REP ---
Clinical: Left lower quadrant abdominal pain. Technique: Upright view of the chest with supine and upright views of the abdomen and pelvis. Findings: Frontal upright view of the chest demonstrates no acute cardiopulmonary process or free air below the diaphragm to suspect pneumoperitoneum. Supine and upright views of the abdomen and pelvis demonstrate nonspecific bowel gas pattern without obstruction or perforation. No organomegaly. Surgical clips identified in the left mid lower abdomen. Phleboliths noted in the pelvis. No abnormal calcifications. Skeletal structures normal for age. Impression: Nonspecific bowel gas pattern. Electronically Signed by Yash Ovalle MD 11/28/2018 12:55 A
== END ==
LOC: M LAB 14:23
PROVIDERS: ATTEND Physician Assistant Medical
DX: R10.32 Left lower quadrant pain (principal); K59.04 Chronic idiopathic constipation

== ENCOUNTER → 2019-10-26 | Outpatient (CLI) | payer MEDICARE, OTHER ==
[~2019-10-26] MED LIST changes: +MIRA3350 PO; +TRUL3TAB PO
--- NOTE | 2019-10-27 00:37 | REP ---
REASON: Followup liver hemangioma. COMPARISON EXAMINATION: 08/06/2018, which showed a 6 mm sized hemangioma in the right lobe of the liver. The small echogenic focus seen previously in the right lobe of the liver is unchanged. There are no new abnormal hepatic parenchymal abnormalities. There is no intrahepatic or extrahepatic ductal dilatation. The common bile duct measures 4 mm. The gallbladder is again seen to be within normal limits. The imaged portion of pancreas and right kidney are again seen to be within normal limits. There is no free fluid in the abdomen. IMPRESSION: No change. Electronically Signed by Altaf Wilson DO 10/27/2019 11:09 A
== END ==
LOC: M LRY 08:53
PROVIDERS: ATTEND Physician Assistant Medical
DX: Z01.818 Encounter for other preprocedural examination (principal); D18.03 Hemangioma of intra-abdominal structures; Z11.59 Encounter for screening for other viral diseases
CPT/HCPCS: 76705; C9803; U0003

== ENCOUNTER → 2019-10-26 | Outpatient (CLI) | payer MEDICARE, OTHER | LOC: M LABSMTC 10:51 | PROVIDERS: ATTEND Anesthesiology | DX: Z01.818 Encounter for other preprocedural examination (principal); Z11.59 Encounter for screening for other viral diseases ==

== ENCOUNTER 2019-10-29 07:38 | Day surgery (SDC) | payer MEDICARE, OTHER ==
[~2019-10-29] VITALS: Ht 154.9 cm; Wt 63.9 kg
[~2019-10-29 07:38] MED LIST changes: +NS 1,000 ML IV ONE
[2019-10-29] MEDS ORDERED: propofoL 200 MG/20 ML VIAL As Ordered ONE (09:50)
[2019-10-29] MEDS ORDERED: LIDOCAINE 2% 100MG/5ML SDV (FOR ANES.) As Ordered ONE (09:50)
--- NOTE | 2019-10-29 10:27 | ROOR ---
Patient Name: Jennifer Hall Procedure Date: 10/29/2019 9:44 AM Date of : 1955 Age: 64 Room: [facility] Gender: Female Note Status: Finalized Procedure: Colonoscopy Indications: Family history of colon cancer, Change in bowel habits Providers: Keny RODRIGUEZ MD Referring MD: Angel Griggs MD Requesting Provider: Medicines: Monitored Anesthesia Care Complications: No immediate complications. Procedure: Pre-Anesthesia Assessment: - The heart rate, respiratory rate, oxygen saturations, blood pressure, adequacy of pulmonary ventilation, and response to care were monitored throughout the procedure. The Colonoscope was introduced through the anus and advanced to 10 cm into the ileum. The colonoscopy was technically difficult and complex due to gross redundancy and suboptimal prep. Extensive lavage performes. Colon prep is adequate after lavage. Findings: The perianal and digital rectal examinations were normal. There was evidence of a prior functional end-to-end colo-colonic anastomosis in the mid sigmoid colon. This was patent and was characterized by healthy appearing mucosa. The lumen of the colon (entire examined portion) was grossly dilated and redundant. The entire examined colon appeared normal. The terminal ileum appeared normal. Impression: - Patent functional end-to-end colo-colonic anastomosis, characterized by healthy appearing mucosa. - The entire colon is long and redundant. - The colon is otherwise normal. - The examined portion of the ileum was normal. - No specimens collected. Recommendation: - Continue present medications. - Return to referring physician as previously scheduled. Keny Rodriguez MD Keny RODRIGUEZ MD 10/29/2019 10:27:08 AM Electronically signed by Keny RODRIGUEZ MD Number of Addenda: 0 Note Initiated On: 10/29/2019 9:44 AM Estimated Blood Loss: Estimated blood loss: none.
[2019-10-29 10:45] VITALS: BP 147/73
== END 2019-10-29 10:55 | disposition home or self-care (01) ==
LOC: M OPP 07:38
PROVIDERS: ATTEND Internal Medicine Gastroenterology
DX: Z98.0 Intestinal bypass and anastomosis status (principal); K56.2 Volvulus; R19.4 Change in bowel habit; Z80.0 Family history of malignant neoplasm of digestive organs; D64.9 Anemia, unspecified; Z79.899 Other long term (current) drug therapy; Z88.1 Allergy status to other antibiotic agents

== ENCOUNTER → 2021-01-19 | Outpatient (CLI) | payer MEDICARE, OTHER ==
[~2021-01-19] MED LIST changes: -NS 1,000 ML IV ONE; +PLEC3TAB PO; -TRUL3TAB PO
--- NOTE | 2021-01-19 10:38 | REP ---
INDICATION: HEMANGIOMA OF INTRA-ABDOMINAL STRUCTURES. COMPARISON: 10/26/2019. TECHNIQUE: Real-time sonographic evaluation of right upper quadrant performed. FINDINGS: The gallbladder demonstrates no evidence of intraluminal sludge or calculi, wall thickening or pericholecystic fluid. There is no intrahepatic or extrahepatic biliary dilatation, common bile duct measures 6 mm in maximum diameter. The liver demonstrates homogeneous echotexture with no gross mass. The previously identified subcentimeter hyperechoic nodule in the right lobe of the liver is not demonstrated on today's exam. Pancreas is not seen due to overlying bowel gas. The right kidney demonstrates no hydronephrosis, with a normal size of 8.6 cm in length. No free fluid is seen. IMPRESSION: The previously noted subcentimeter hyperechoic nodule in the right lobe of the liver is not seen on today's exam. The study is otherwise unremarkable. <Electronically signed by Peter Post > 01/19/21 1031
== END ==
LOC: M RAD 09:32
PROVIDERS: ATTEND Physician Assistant Medical
DX: D18.03 Hemangioma of intra-abdominal structures (principal)